=== PATIENT | female | born 1955 | race Caucasian/White ===

== ENCOUNTER → 2018-01-24 | Outpatient (CLI) | payer MEDICARE ==
[~2018-01-24] MED LIST: BUPR150T6 PO; DULO30CA2 PO; HYDR-3307 PO; LEVO137T2 PO; MORP30TA3 PO; NALO25TA PO; TRAZ50TA66 PO; TRIA1CAP3 PO
[2018-01-24 10:10] LABS: BASOPHILS # (AUTO) 0.02 x10^3/uL (0-0.1); BASOPHILS % (AUTO) 0 % (0-1); EOSINOPHILS # (AUTO) 0.24 x10^3/uL (0-0.4); EOSINOPHILS % (AUTO) 3 % (1-7); LYMPHOCYTES % (AUTO) 16 % (22-44); MD NO; MEAN CORPUSCULAR HEMOGLOBIN 31.4 pg (27.0-34.8); MEAN CORPUSCULAR HGB CONC 33.9 g/dL (32.4-35.8); MEAN CORPUSCULAR VOLUME 92.6 fL (80-100); MEAN PLATELET VOLUME 8.6 fL (7.4-10.4); MONOCYTES # (AUTO) 0.68 x10^3/uL (0.2-0.8); MONOCYTES % (AUTO) 9 % (2-9); NEUTROPHILS % (AUTO) 72 % (42-75); PLATELET COUNT 245 x10^3/uL (130-400); RED BLOOD COUNT 4.86 x10^6/uL (3.82-5.3); RED CELL DISTRIBUTION WIDTH 12.8 % (9.6-15.2)
[2018-01-24 10:11] LABS: INTERNATIONAL NORMALIZED RATIO 0.96 (0.93-1.1); PROTHROMBIN TIME 10.2 Seconds (9.6-11.5)
[2018-01-24 10:13] LABS: ALANINE AMINOTRANSFERASE 31 U/L (12-78); ALBUMIN 3.5 g/dL (3.4-5.0); ANION GAP 6 mmol/L (5-15); CALCIUM 8.9 mg/dL (8.5-10.1); CHLORIDE 105 mmol/L (98-107); CREATININE 0.76 mg/dL (0.55-1.02)
[2018-01-24 10:15] LABS: ALKALINE PHOSPHATASE 69 U/L (45-117); BILIRUBIN,TOTAL 0.3 mg/dL (0.2-1.0); TOTAL PROTEIN 7.5 g/dL (6.4-8.2)
== END | disposition home or self-care (01) ==
LOC: STAR 08:28
PROVIDERS: ATTEND Neurological Surgery
DX: Z01.818 Encounter for other preprocedural examination (principal); M48.062 Spinal stenosis, lumbar region with neurogenic claudication
CPT/HCPCS: 36415; 71046; 80053; 85025; 85610; 85730; 93005

== ENCOUNTER 2018-01-30 10:13 | Inpatient (IN) | payer MEDICARE ==
[~2018-01-30] VITALS: Ht 177.8 cm; Wt 87.1 kg
[~2018-01-30 10:13] MED LIST changes: +BACITRACIN 50,000 UNIT ONE; +BUPIVACAINE/PF-EPI 0.5% 1:200K ONE; +THROMBIN 5,000 UNIT VIAL TP ONE; +VANCOMYCIN 1,000 MG ONE
[2018-01-30] MEDS ORDERED: LACTATED RINGERS 1,000 ML IV SCH (10:44)
[2018-01-30 10:46] VITALS: BP 122/80
[2018-01-30] MEDS ORDERED: LIDOCAINE-MPF 1%, 2ML INFIL ONE (11:00)
[2018-01-30] MEDS ORDERED: MIDAZOLAM 1 MG/ML, 2ML ONE (13:02)
[2018-01-30] MEDS ORDERED: FENTANYL PF 250 MCG/5ML ONE (13:02)
[2018-01-30] MEDS ORDERED: OxyconTIN ER 20 MG TAB.ER PO ONE (14:00)
[2018-01-30] MEDS ORDERED: ACETAMINOPHEN 500 MG TABLET PO ONE (14:00)
[2018-01-30] MEDS ORDERED: GABAPENTIN 300 MG CAPSULE PO ONE (14:00)
[2018-01-30] MEDS ORDERED: ONDANSETRON 2MG/ML, 2ML ONE (14:08)
[2018-01-30] MEDS ORDERED: ROCURONIUM 10 MG/ML,10ML ONE (14:08)
[2018-01-30] MEDS ORDERED: PROPOFOL 10 MG/ML, 20ML ONE (14:08)
[2018-01-30] MEDS ORDERED: CEFAZOLIN 1,000 MG ONE (14:08)
[2018-01-30] MEDS ORDERED: DEXAMETHASONE 4 MG/ML, 1ML ONE (14:08)
[2018-01-30] MEDS ORDERED: FENTANYL PF 100 MCG/2ML IV PRN (16:00)
[2018-01-30] MEDS ORDERED: HALOPERIDOL 5 MG/ML IV PRN (16:00)
[2018-01-30] MEDS ORDERED: hydrALAzine 20 MG/ML, 1ML IV PRN (16:00)
[2018-01-30] MEDS ORDERED: LABETALOL 5MG/ML, 20ML IV PRN (16:00)
[2018-01-30] MEDS ORDERED: HYDROmorphone 2 MG/ML, 1ML IVPush PRN (16:00)
[2018-01-30] MEDS ORDERED: PROMETHAZINE 25 MG/ML, 1ML IV PRN (16:00)
[2018-01-30] MEDS ORDERED: OXYcodone 5 MG/5 ML ORAL.SOL UDC PO PRN (16:00)
[2018-01-30] MEDS ORDERED: ALBUTEROL SULFATE 2.5 MG/3 ML NPPB PRN (16:00)
[2018-01-30] MEDS ORDERED: MEPERIDINE/PF 25MG/0.5ML IVPush PRN (16:30)
[2018-01-30] MEDS ORDERED: ONDANSETRON 2MG/ML, 2ML IV PRN (18:00)
[2018-01-30] MEDS ORDERED: PROMETHAZINE 25 MG/ML, 1ML IM PRN (18:00)
[2018-01-30] MEDS ORDERED: BISACODYL 10 MG SUPP PR PRN (18:00)
[2018-01-30] MEDS ORDERED: DIPHENHYDRAMINE 50 MG/ML, 1ML IVPush PRN (18:00)
[2018-01-30] MEDS ORDERED: NS + 20MEQ KCL 1,000 ML IV SCH (18:00)
[2018-01-30] MEDS ORDERED: HYDROmorphone 2MG TABLET PO PRN (18:00)
[2018-01-30] MEDS ORDERED: DIPHENHYDRAMINE 50 MG CAPSULE PO PRN (18:00)
[2018-01-30] MEDS ORDERED: MAGNESIUM HYDROXIDE 8%, 30ML UDC PO PRN (18:00)
[2018-01-30] MEDS ORDERED: DIPHENHYDRAMINE 50 MG/ML, 1ML IM PRN (18:00)
[2018-01-30] MEDS ORDERED: HYDROmorphone 2 MG/ML, 1ML IM PRN (18:00)
[2018-01-30] MEDS ORDERED: HYDROcodone/APAP 10/325 MG TABLET PO PRN (20:00)
[2018-01-30] MEDS ORDERED: ZOLPIDEM 5MG TABLET PO PRN (21:00)
[2018-01-30] MEDS ORDERED: CEFAZOLIN PMX 1GM/50ML 50 ML IVPB SCH (22:00)
[2018-01-31] MEDS ORDERED: SENNA/DOCUSATE TABLET PO SCH (09:00)
== END 2018-01-30 21:00 | disposition home or self-care (01) | DRG 502 ==
LOC: OUT 10:13 → 4NOR 17:25 → OUT 17:53
PROVIDERS: ADMIT Neurological Surgery; ATTEND Neurological Surgery
PROC: 0JU737Z Supplement of Back Subcutaneous Tissue and Fascia with Autologous Tissue Substitute, Percutaneous Approach (ICD-10-PCS; 2018-01-30)
PROC: 01NB0ZZ Release Lumbar Nerve, Open Approach (ICD-10-PCS; principal; 2018-01-30 13:00)
DX: M48.062 Spinal stenosis, lumbar region with neurogenic claudication (principal); M19.90 Unspecified osteoarthritis, unspecified site; M79.7 Fibromyalgia; M54.16 Radiculopathy, lumbar region; M48.07 Spinal stenosis, lumbosacral region; Z91.048 Other nonmedicinal substance allergy status
CPT/HCPCS: 72100; G0378; J0690; J1100; J2175; J2250; J2405; J2704; J3010; J3370; J7120

== ENCOUNTER 2020-05-10 07:05 | Day surgery (SDC) | payer MEDICARE ==
[~2020-05-10] VITALS: Ht 175.3 cm; Wt 86.5 kg
[~2020-05-10 07:05] MED LIST changes: -BACITRACIN 50,000 UNIT ONE; -BUPIVACAINE/PF-EPI 0.5% 1:200K ONE; +BUPR150T22 PO; -BUPR150T6 PO; +HYDR-3248 PO; -HYDR-3307 PO; +MORP-30 PO; -MORP30TA3 PO; -NALO25TA PO; +NALO25TA4 PO; -THROMBIN 5,000 UNIT VIAL TP ONE; -VANCOMYCIN 1,000 MG ONE
[2020-05-10] MEDS ORDERED: ACETAMINOPHEN 500 MG TABLET PO STA (07:46)
[2020-05-10] MEDS ORDERED: LEVO175T2 PO (07:51)
[2020-05-10 07:59] VITALS: BP 158/100
[2020-05-10] MEDS ORDERED: GLUC1CAP13 PO (07:59)
[2020-05-10] MEDS ORDERED: LORA-864 PO (07:59)
[2020-05-10] MEDS ORDERED: cinsulin PO (07:59)
[2020-05-10] MEDS ORDERED: CHOL500051 PO (07:59)
[2020-05-10] MEDS ORDERED: NITR50CA11 PO (07:59)
[2020-05-10] MEDS ORDERED: SENN1TAB67 PO (07:59)
[2020-05-10] MEDS ORDERED: MULT-717 PO (07:59)
[2020-05-10] MEDS ORDERED: CELE100C PO (07:59)
[2020-05-10] MEDS ORDERED: OMEG1CAP39 PO (07:59)
[2020-05-10] MEDS ORDERED: LACT1CAP64 PO (07:59)
[2020-05-10] MEDS ORDERED: DICL20GE TP (07:59)
[2020-05-10] MEDS ORDERED: MAGN500T PO (07:59)
[2020-05-10] MEDS ORDERED: TURM538C PO (07:59)
[2020-05-10] MEDS ORDERED: ASPI81TA45 PO (07:59)
[2020-05-10] MEDS ORDERED: CYAN-27 PO (07:59)
[2020-05-10] MEDS ORDERED: URIN1STR71 PO (07:59)
[2020-05-10] MEDS ORDERED: TIZA-106 PO (07:59)
[2020-05-10] MEDS ORDERED: CHLORHEXIDINE 15 ML UDC PO ONE (08:00)
[2020-05-10] MEDS ORDERED: LACTATED RINGERS 1,000 ML IV SCH (08:00)
[2020-05-10 08:29] LABS: CHLORIDE 108 mmol/L (98-107)
[2020-05-10 08:35] LABS: ALANINE AMINOTRANSFERASE 28 U/L (12-78); ALBUMIN 3.5 g/dL (3.4-5.0); ALKALINE PHOSPHATASE 53 U/L (45-117); BILIRUBIN,TOTAL 0.4 mg/dL (0.2-1.0); CALCIUM 8.8 mg/dL (8.5-10.1); TOTAL PROTEIN 7.1 g/dL (6.4-8.2)
[2020-05-10 08:36] LABS: ANION GAP 6 mmol/L (5-15)
[2020-05-10] MEDS ORDERED: PROMETHAZINE 12.5 MG SUPP PR PRN (09:00)
[2020-05-10] MEDS ORDERED: HYDROmorphone 1 MG/ML, 1ML INJ IVPush PRN (09:00)
[2020-05-10] MEDS ORDERED: hydrALAzine 20 MG/ML, 1ML IV PRN (09:00)
[2020-05-10] MEDS ORDERED: ONDANSETRON 2MG/ML, 2ML IVPush PRN (09:00)
[2020-05-10] MEDS ORDERED: FENTANYL PF 100 MCG/2ML IV PRN (09:00)
[2020-05-10] MEDS ORDERED: PROMETHAZINE 25 MG/ML, 1ML IVPush PRN (09:00)
[2020-05-10] MEDS ORDERED: EPHEDRINE 50 MG/ML, 1ML IVPush PRN (09:00)
[2020-05-10] MEDS ORDERED: LABETALOL 5MG/ML, 20ML IV PRN (09:00)
[2020-05-10] MEDS ORDERED: OXYcodone 5 MG/5 ML ORAL.SOL UDC PO PRN (09:00)
[2020-05-10] MEDS ORDERED: FENTANYL PF 250 MCG/5ML ONE (09:39)
[2020-05-10] MEDS ORDERED: MIDAZOLAM 1 MG/ML, 2ML ONE (09:39)
[2020-05-10] MEDS ORDERED: BUPIVACAINE/PF 0.25% ONE (09:40)
[2020-05-10] MEDS ORDERED: EPINEPHRINE 1 MG/ML, 1ML ONE (09:40)
[2020-05-10] MEDS ORDERED: CEFAZOLIN 1,000 MG ONE (10:03)
[2020-05-10] MEDS ORDERED: PROPOFOL 10 MG/ML, 20ML ONE (10:03)
[2020-05-10] MEDS ORDERED: DEXAMETHASONE 4 MG/ML, 1ML ONE (10:03)
[2020-05-10] MEDS ORDERED: ONDANSETRON 2MG/ML, 2ML ONE (10:03)
[2020-05-10] MEDS ORDERED: KETOROLAC 30 MG/1 ML ONE (10:18)
[2020-05-10] MEDS ORDERED: SODIUM CHLORIDE 0.9% PF 10ML ONE (10:18)
[2020-05-10] MEDS ORDERED: LIDOCAINE-MPF 2% ,5ML ONE (10:18)
== END 2020-05-10 12:30 | disposition home or self-care (01) ==
LOC: OUT 07:05
PROVIDERS: ATTEND Orthopaedic Surgery
DX: M23.261 Derangement of other lateral meniscus due to old tear or injury, right knee (principal); I10 Essential (primary) hypertension; E03.9 Hypothyroidism, unspecified; Z20.822 Contact with and (suspected) exposure to COVID-19; Z79.1 Long term (current) use of non-steroidal anti-inflammatories (NSAID); Z79.890 Hormone replacement therapy; Z79.891 Long term (current) use of opiate analgesic; Z79.899 Other long term (current) drug therapy; Z88.8 Allergy status to other drugs, medicaments and biological substances; Z98.890 Other specified postprocedural states
CPT/HCPCS: 29881; 36415; 80053; 87635; 93005; J0171; J0690; J1100; J1885; J2250; J2405; J2704; J3010; J7120